=== PATIENT | male | born 1945 | race Caucasian/White ===

== ENCOUNTER 2021-09-22 06:16 | Day surgery (SDC) | payer BC ==
[2021-09-21 16:32] VITALS: BMI 25.1
[2021-09-22] MEDS: PHENYLEPHRINE 2.5% OPHTH SOLN 15 ML BOTTLE OS SCH ×3 (07:00→07:10)
[2021-09-22] MEDS: KETOROLAC TROMETHAMINE 0.5% EYE DROP 1 DROP DROPS OS SCH ×3 (07:00→07:10)
[2021-09-22] MEDS: TROPICAMIDE 1% OPHTH SOLN 15 ML BOTTLE OS SCH ×3 (07:00→07:10)
[2021-09-22] MEDS: OFLOXACIN 0.3% OPHTHALMIC SOLUTION 5 ML BOTTLE OS SCH ×3 (07:00→07:10)
[2021-09-22] MEDS: CYCLOPENTOLATE HCL 1% OPHTH SOLN 2 ML BOTTLE OS SCH ×3 (07:00→07:10)
[2021-09-22] MEDS ORDERED: MIDAZOLAM HCL 2 MG/2 ML SINGLE DOSE VIAL ONE (08:38)
[2021-09-22] MEDS ORDERED: ACETAMINOPHEN 325 MG TABLET (FP) PO PRN (09:27)
[2021-09-22 09:58] VITALS: BP 123/75; PULSE 76; TEMP 98.4
== END 2021-09-22 10:05 | disposition home or self-care (01) ==
LOC: FASU 06:16
PROVIDERS: ATTEND Ophthalmology
PROC: 08RK3JZ Replacement of Left Lens with Synthetic Substitute, Percutaneous Approach (ICD-10-PCS; principal; 2021-09-22 08:58)
DX: H26.9 Unspecified cataract (principal)

== ENCOUNTER 2021-10-06 07:45 | Day surgery (SDC) | payer BC ==
[2021-10-04 13:01] VITALS: BMI 25.1
[2021-10-06] MEDS ORDERED: CYCLOPENTOLATE HCL 1% OPHTH SOLN 2 ML BOTTLE ONE (08:32)
[2021-10-06] MEDS ORDERED: TROPICAMIDE 1% OPHTH SOLN 15 ML BOTTLE ONE (08:32)
[2021-10-06] MEDS ORDERED: OFLOXACIN 0.3% OPHTHALMIC SOLUTION 5 ML BOTTLE ONE (08:32)
[2021-10-06] MEDS ORDERED: PHENYLEPHRINE 2.5% OPHTH SOLN 15 ML BOTTLE ONE (08:32)
[2021-10-06] MEDS ORDERED: KETOROLAC TROMETHAMINE 0.5% EYE DROP 1 DROP DROPS ONE (08:32)
[2021-10-06] MEDS: CYCLOPENTOLATE HCL 1% OPHTH SOLN 2 ML BOTTLE OD SCH ×3 (08:45→08:55)
[2021-10-06] MEDS: OFLOXACIN 0.3% OPHTHALMIC SOLUTION 5 ML BOTTLE OD SCH ×3 (08:45→08:55)
[2021-10-06] MEDS: KETOROLAC TROMETHAMINE 0.5% EYE DROP 1 DROP DROPS OD SCH ×3 (08:45→08:55)
[2021-10-06] MEDS: PHENYLEPHRINE 2.5% OPHTH SOLN 15 ML BOTTLE OD SCH ×3 (08:45→08:55)
[2021-10-06] MEDS: TROPICAMIDE 1% OPHTH SOLN 15 ML BOTTLE OD SCH ×3 (08:45→08:55)
[2021-10-06] MEDS ORDERED: BETAXOLOL HCL 0.25% OPHTHALMIC 10 ML DROPSBTL ONE (10:16)
[2021-10-06] MEDS ORDERED: BACITRACIN/POLYMYXIN OPH OINT 3.5 GM TUBE ONE (10:16)
[2021-10-06] MEDS ORDERED: TETRACAINE 0.5% OPHTH SOLN 2 ML BOTTLE ONE (10:16)
[2021-10-06] MEDS ORDERED: NEO/POLYMYX B SULF/DEXAMETH OPHTHALMIC 5ML BOTTLE ONE (10:16)
[2021-10-06] MEDS ORDERED: POVIDONE-IODINE 5% OPHTHALMIC PREP 30 ML SOLUTION ONE (10:16)
[2021-10-06] MEDS ORDERED: EPI-SHUGARCAINE (EPINEPHRINE 0.025% & LIDOCAINE-PF 0.75%) 4ML ONE (10:16)
[2021-10-06] MEDS ORDERED: MIDAZOLAM HCL 2 MG/2 ML SINGLE DOSE VIAL ONE (10:35)
[2021-10-06] MEDS ORDERED: ACETAMINOPHEN 325 MG TABLET (FP) PO PRN (11:15)
[2021-10-06 11:41] VITALS: TEMP 97.7
[2021-10-06 12:07] VITALS: BP 128/71; PULSE 72
== END 2021-10-06 12:00 | disposition home or self-care (01) ==
LOC: FASU 07:45
PROVIDERS: ATTEND Ophthalmology
PROC: 08RJ3JZ Replacement of Right Lens with Synthetic Substitute, Percutaneous Approach (ICD-10-PCS; principal; 2021-10-06 10:50)
DX: H26.9 Unspecified cataract (principal)